=== PATIENT | male | born 1960 | race Caucasian/White ===

== ENCOUNTER 2016-03-07 21:21 | Emergency (ER) | payer BC, OTHER ==
[~2016-03-07] VITALS: Ht 170.2 cm; Wt 94.3 kg
[~2016-03-07 21:21] MED LIST: ATEN50TA8 PO; LSN20 PO; PRAV20TA PO
[2016-03-07 21:38] VITALS: TEMP 37.6; Ht 170.2 cm; Wt 94.3 kg
[2016-03-07] MEDS ORDERED: PRLSR20 PO (22:38)
[2016-03-07] MEDS ORDERED: AMLO-114 PO (22:38)
[2016-03-07] MEDS ORDERED: SODIUM CHLORIDE 0.9% 1000ML 1,000 ML IV STA (23:03)
--- NOTE | 2016-03-07 23:27 | EMERGENCY ROOM VISIT NOTE ---
History Report prepared by Dylan: Shyann Servni Under the Supervision of: Dr. Lauren Varela M.D. 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 The patient was at home when he started experiencing chills, shortness of breath, and cramping pain in his legs and abdomen. He was feeling fine throughout the day before this occurred. Since his arrival in the ED he has started to experience a headache, sinus congestion, and a low-grade fever. The patient rates his pain as a 2/10 in severity. He did not take any medication for his symptoms. He denies any recent long trips, recent surgeries, and any personal or family history of blood clots. He did have a flu shot this year. Source of History: patient Onset: BEEF PUSHER Position: other (global) Symptom Intensity: 2/10 Quality: other (illness) Timing: other (sudden onset) Associated Symptoms: + SOB, + abdominal pain, + chills, + fevers, + headache Note: Pt notes sinus congestion. He denies any recent long trips, recent surgeries, and any personal or family history of blood clots. Review of Systems See HPI for pertinent positives & negatives. A total of 10 systems reviewed and were otherwise negative. Past Medical & Surgical Medical Problems: (1) Finger laceration (2) Hypertension Surgical Problems: (1) Hx of tonsillectomy Family History Diabetes mellitus Heart disease Hypertension Social History Smoking Status: Never Smoker Smokeless Tobacco Use: No Alcohol Use: occasionally Marital Status: Housing Status: lives with family Occupation Status: employed Current/Historical Medications Scheduled Amlodipine (Norvasc), 10 MG PO DAILY Lisinopril (Lisinopril), 20 MG PO DAILY Omeprazole (Prilosec), 20 MG PO DAILY Allergies Coded Allergies: Sulfa Drugs (Verified Allergy, Unknown, HIVES, 05/16/11) Physical Exam Vital Signs Date Time Temp Pulse Resp B/P Pulse Ox O2 Delivery O2 Flow Rate FiO2 03/08/16 01:16 85 20 144/76 95 Room Air 03/08/16 00:26 92 20 161/76 95 Room Air 03/07/16 23:20 100 20 150/77 94 Room Air 03/07/16 22:33 109 03/07/16 21:38 37.6 122 20 145/89 96 Room Air Physical Exam Vital signs reviewed. General: Well-appearing 56 year old male, mildly febrile, in no significant distress. HEENT: No scleral icterus, PERRLA, neck supple. Atraumatic. Cardiovascular: Tachycardic rate and regular rhythm, no extra sounds. Pulmonary: Clear to auscultation bilaterally, normal work of breathing. Abdomen: Soft, nontender, nondistended, positive bowel sounds. Musculoskeletal: Atraumatic, no peripheral edema. Neurologic: Patient awake alert and oriented x 3, full strength in all 4 extremities. Cranial nerves 2 through 12 grossly intact. Skin: Warm, dry, no rash Medical Decision & Procedures ER Provider Diagnostic Interpretation: Chest x-ray as interpreted by myself reveals poor inspiratory effort, mild interstitial thickening along the perihilar border, no focal lung consolidation or failure. Other radiology results as stated below per my review and radiologist interpretation: CTA CHEST: No central pulmonary embolus. No effusions or consolidation. Fatty liver. Small hiatal hernia. Vague enhancement in the dome of the liver. Subcutaneous nodule in the right lower anterior chest wall. Radiologist: Rohith Regalado M.D. Laboratory Results 03/07/16 23:20 Red Blood Count 5.17, Mean Corpuscular Volume 82.6, Mean Corpuscular Hemoglobin 29.2, Mean Corpuscular Hemoglobin Concent 35.4, Mean Platelet Volume 10.6, Neutrophils (%) (Auto) 80.9, Lymphocytes (%) (Auto) 9.5, Monocytes (%) (Auto) 8.4, Eosinophils (%) (Auto) 0.4, Basophils (%) (Auto) 0.2, Neutrophils # (Auto) 10.07, Lymphocytes # (Auto) 1.19, Monocytes # (Auto) 1.05, Eosinophils # (Auto) 0.05, Basophils # (Auto) 0.03 03/07/16 23:20 Test 03/07/16 23:20 03/07/16 23:30 03/07/16 23:36 White Blood Count 12.47 K/uL (4.8-10.8) Red Blood Count 5.17 M/uL (4.7-6.1) Hemoglobin 15.1 g/dL (14.0-18.0) Hematocrit 42.7 % (42-52) Mean Corpuscular Volume 82.6 fL (80-100) Mean Corpuscular Hemoglobin 29.2 pg (25-34) Mean Corpuscular Hemoglobin Concent 35.4 g/dl (32-36) Platelet Count 164 K/uL (130-400) Mean Platelet Volume 10.6 fL (7.4-10.4) Neutrophils (%) (Auto) 80.9 % Lymphocytes (%) (Auto) 9.5 % Monocytes (%) (Auto) 8.4 % Eosinophils (%) (Auto) 0.4 % Basophils (%) (Auto) 0.2 % Neutrophils # (Auto) 10.07 K/uL (1.4-6.5) Lymphocytes # (Auto) 1.19 K/uL (1.2-3.4) Monocytes # (Auto) 1.05 K/uL (0.11-0.59) Eosinophils # (Auto) 0.05 K/uL (0-0.5) Basophils # (Auto) 0.03 K/uL (0-0.2) RDW Standard Deviation 38.1 fL (36.4-46.3) RDW Coefficient of Variation 12.8 % (11.5-14.5) Immature Granulocyte % (Auto) 0.6 % Immature Granulocyte # (Auto) 0.08 K/uL (0.00-0.02) Prothrombin Time 10.3 SECONDS (9.0-12.0) Prothromb Time International Ratio 1.0 (0.9-1.1) Activated Partial Thromboplast Time 26.2 SECONDS (21.0-31.0) Partial Thromboplastin Ratio 1.0 Anion Gap 11.0 mmol/L (3-11) Est Creatinine Clear Calc Drug Dose 60.2 ml/min Estimated GFR () 59.5 Estimated GFR (Non- 51.3 BUN/Creatinine Ratio 15.3 (10-20) Calcium Level 8.7 mg/dl (8.5-10.1) Magnesium Level 2.1 mg/dl (1.8-2.4) Total Bilirubin 0.8 mg/dl (0.2-1) Direct Bilirubin < 0.1 mg/dl (0-0.2) Aspartate Amino Transf (AST/SGOT) 20 U/L (15-37) Alanine Aminotransferase (ALT/SGPT) 31 U/L (12-78) Alkaline Phosphatase 56 U/L (45-117) Total Creatine Kinase 121 U/L (39-308) Creatine Kinase MB 1.1 ng/ml (0.5-3.6) Creatine Kinase MB Ratio 0.9 (0-3.0) Troponin I < 0.015 ng/ml (0-0.045) Total Protein 7.4 gm/dl (6.4-8.2) Albumin 3.9 gm/dl (3.4-5.0) Bedside D-Dimer > 450 ng/mlFEU (0-450) Bedside Troponin I ng/ml (0-0.045) Influenza Type A Antigen Neg for Influ A (NEG) Influenza Type B Antigen Neg for Influ B (NEG) Laboratory results per my review. Medications Administered Medications (Trade) Dose Ordered Sig/Van Route Start Time Stop Time Status Last Admin Dose Admin Sodium Chloride (Nss 1000ml) 1,000 ml @ 999 mls/hr Q1H1M STAT IV 03/07/16 23:03 03/08/16 00:03 DC 03/07/16 23:03 999 MLS/HR ECG Indication: tachycardia Rate (beats per minute): 97 Rhythm: normal sinus Findings: no acute ischemic change, no ectopy Comparison ECG Date: no prior available ED Course 2259: Past medical records reviewed. The patient was evaluated in room B12B. A complete history and physical examination was performed. 2303: NSS 1000 ml @ 999 mls/hr IV 0032: NSS 1000 ml @ 200 mls/hr IV 0132: I reassessed the patient at this time. He is feeling better and resting comfortably. I discussed the results and treatment plan with the patient. I answered all pertaining questions that he had. He expressed understanding and verbalized agreement. The patient will be discharged home. Medical Decision Differential diagnoses includes influenza, other viral illness, pneumonia, urinary tract infection, metabolic abnormality, medication effect, cellulitis, meningitis, intra-abdominal source, PE. This pt was evaluated and appeared to be in no distress. Pt is noted to be mildly febrile. He described rigors earlier in the day and is noted to be tachycardic. IVF were initiated. Lab work reveals a mild leukocytosis. Flu swab was obtained and is negative. CXR is negative. Ddimer is positive and a CT chest is neg for PE or PNA. PT was informed of the findings and agrees with conservative treatment plan for this likely viral illness. He will f/u with his PCP this week and return to the ED for worsening of symptoms or any medical concerns. Impression Primary Impression: Fever Additional Impression: Tachycardia Scribe Attestation The scribe's documentation has been prepared under my direction and personally reviewed by me in its entirety. I confirm that the note above accurately reflects all work, treatment, procedures, and medical decision making performed by me. Departure Information Dispostion Home / Self-Care Referrals Suresh Sheriff III, M.D. (PCP) Forms HOME CARE DOCUMENTATION FORM, IMPORTANT VISIT INFORMATION Patient Instructions A Signature Page, My [facility] Additional Instructions Diagnosis: Fever, tachycardia Tylenol 650 mg every 6 hours as needed for pain/fever. Ibuprofen 6 mg every 6 hours as needed for pain or fever. Drink plenty of clear fluids. Follow-up with your physician for reevaluation this week. Return to the ER for worsening of symptoms or any medical concerns.
[2016-03-07 23:36] LABS: BASO % 0.2 %; BASO ABS # 0.03 K/uL (0-0.2); COMPLETE YES; EOS % 0.4 %; HEMATOCRIT 42.7 % (42-52); IG% 0.6 %; LYMPH % 9.5 %; LYMPH ABS # 1.19 K/uL (1.2-3.4); MEAN CELL VOLUME 82.6 fL (80-100); MEAN CORPUSCULAR HEMOGLOBIN 29.2 pg (25-34); MEAN CORPUSCULAR HGB CONC 35.4 g/dl (32-36); MEAN PLATELET VOLUME 10.6 fL (7.4-10.4); MONO % 8.4 %; NEUT % 80.9 %; PLATELET COUNT 164 K/uL (130-400); RED BLOOD COUNT 5.17 M/uL (4.7-6.1); WHITE BLOOD COUNT 12.47 K/uL (4.8-10.8)
[2016-03-07 23:46] LABS: PROTHROMBIN TIME (PATIENT) 10.3 SECONDS (9.0-12.0)
[2016-03-08 00:01] LABS: ALT/SGPT 31 U/L (12-78); BLOOD UREA NITROGEN 23 mg/dl (7-18); BUN/CREATININE RATIO 15.3 (10-20); CALCIUM 8.7 mg/dl (8.5-10.1); CARBON DIOXIDE 25 mmol/L (21-32); CHLORIDE 105 mmol/L (98-107); GLUCOSE 220 mg/dl (70-99); MAGNESIUM 2.1 mg/dl (1.8-2.4); SODIUM 141 mmol/L (136-145)
[2016-03-08 00:06] LABS: ALKALINE PHOSPHATASE 56 U/L (45-117); AST/SGOT 20 U/L (15-37); CKMB/CK RATIO 0.9 (0-3.0)
[2016-03-08] MEDS ORDERED: OPTIRAY 320 IV PRN (00:30)
[2016-03-08] MEDS ORDERED: SODIUM CHLORIDE 0.9% 1000ML 1,000 ML IV STA (00:32)
[2016-03-08 01:16] VITALS: BP 144/76; PULSE 85; O2SAT 95
--- NOTE | 2016-03-08 07:04 | DIAGNOSTIC IMAGING REPORT ---
CT ANGIOGRAPHY OF THE CHEST, PULMONARY EMBOLUS PROTOCOL CLINICAL HISTORY: Sudden onset of chills. Back pain. COMPARISON STUDY: Chest radiograph March 07, 2016. TECHNIQUE: Following IV administration of 107 mL of Optiray-320, helical axial images of the chest were obtained utilizing the pulmonary embolus protocol. Maximal intensity projections and sagittal and coronal reformats were viewed on an independent 3D workstation. IV contrast was administered without complication. CT DOSE: 483.37 mGy.cm FINDINGS: No central or lobar pulmonary embolus is identified. The segmental and subsegmental pulmonary arteries are suboptimally assessed due to respiratory motion. The heart is mildly enlarged. There is no pericardial effusion. There are no enlarged thoracic lymph nodes. There may be a small hiatal hernia. Central airways are patent. There is no consolidation to suggest pneumonia. No pneumothorax or pleural effusion is present. Bony thorax is unremarkable. A 1.6 cm low-attenuation subcutaneous nodule of the right anterior chest wall is likely benign. There is fatty infiltration of the liver. There is a subtle 1.6 cm hyperdense focus within the right hepatic dome which is of questionable clinical significance. IMPRESSION: 1. No pulmonary emboli identified. 2. No acute intrathoracic findings. 3. Mild cardiomegaly. 4. Fatty liver. Electronically signed by: Teto Sanders M.D. 03/08/2016 7:02 AM
--- NOTE | 2016-03-08 07:31 | DIAGNOSTIC IMAGING REPORT ---
CHEST ONE VIEW PORTABLE CLINICAL HISTORY: tachycardia COMPARISON STUDY: No previous studies for comparison. FINDINGS: The cardiac and mediastinal contours are normal. There is no evidence of focal pulmonary consolidation. There is no evidence of failure. No pleural effusions are visualized.[ There is slightly prominent basilar markings, likely atelectatic. IMPRESSION: Slight prominent basilar markings, likely atelectatic. No evidence of lobar consolidation. No evidence of failure. Electronically signed by: Gt Maldonado M.D. 03/08/2016 7:29 AM
== END 2016-03-08 01:45 | disposition home or self-care (01) ==
LOC: C.EDB 21:22
DX: R50.9 Fever, unspecified (principal); R00.0 Tachycardia, unspecified; I10 Essential (primary) hypertension; Z83.3 Family history of diabetes mellitus; Z82.49 Family history of ischemic heart disease and other diseases of the circulatory system; Z79.899 Other long term (current) drug therapy